=== PATIENT | male | born 1990 | race African-American/Black ===

== ENCOUNTER 2017-10-09 17:50 | Emergency (ER) | payer OTHER ==
[~2017-10-09] VITALS: Ht 172.7 cm; Wt 60.0 kg
[~2017-10-09 17:50] MED LIST: ADVIL
[2017-10-09] MEDS ORDERED: KETOROLAC 60MG/2ML VIAL IM ONE (19:15)
[2017-10-09 22:21] VITALS: BP 115/79
== END 2017-10-09 22:22 | disposition home or self-care (01) ==
LOC: ER 18:41
DX: S20.20XA Contusion of thorax, unspecified, initial encounter (principal); V43.52XA Car driver injured in collision with other type car in traffic accident, initial encounter; Y93.89 Activity, other specified; Y92.488 Other paved roadways as the place of occurrence of the external cause
CPT/HCPCS: 71101; 96372; 99284; J1885

== ENCOUNTER 2018-07-04 00:23 | Emergency (ER) | payer MEDICAID, OTHER ==
[~2018-07-04] VITALS: Ht 177.8 cm; Wt 60.2 kg
[2018-07-04] MEDS ORDERED: AZITHROMYCIN 500 MG TABLET PO ONE (02:00)
[2018-07-04] MEDS ORDERED: CEFTRIAXONE SODIUM 250 MG/VIAL IM ONE (02:00)
[2018-07-04] MEDS ORDERED: IBUPROFEN 600MG TABLET PO ONE (02:00)
[2018-07-04 02:58] VITALS: BP 115/67
[2018-07-04] MEDS ORDERED: LIDOCAINE HCL 1% 20ML VIAL (Pyxis) INJ INFIL ONE (03:00)
[2018-07-04] MEDS ORDERED: STERILE WATER FOR INJECTION 10ML VIAL ONE (03:03)
[2018-07-04 03:22] LABS: CLARITY URINE CLOUDY (CLEAR); COLOR URINE YELLOW (YELLOW); KETONES URINE TRACE (NEGATIVE); LEUKOCYTE ESTERASE URINE 3+ (NEGATIVE); NITRITE URINE NEGATIVE (NEGATIVE); OCCULT BLOOD URINE TRACE (NEGATIVE); PROTEIN URINE NEGATIVE (NEGATIVE); SPECIFIC GRAVITY URINE 1.022 (1.005-1.030)
== END 2018-07-04 04:35 | disposition home or self-care (01) ==
LOC: ER 00:23
DX: B00.9 Herpesviral infection, unspecified (principal); N39.0 Urinary tract infection, site not specified; Z88.0 Allergy status to penicillin
CPT/HCPCS: 81003; 87086; 96372; 99283; A4216; J0696; J3490; Z7610

== ENCOUNTER 2019-04-20 02:18 | Emergency (ER) | payer BC, MEDICAID ==
[~2019-04-20] VITALS: Ht 177.8 cm; Wt 59.0 kg
[2019-04-20] MEDS ORDERED: AZITHROMYCIN 500 MG TABLET PO ONE (04:00)
[2019-04-20] MEDS ORDERED: PENICILLIN G BENZATHINE 2,400,000 UNITS/4ML SYR IM ONE (04:00)
[2019-04-20 04:51] VITALS: BP 139/74
[2019-04-24 04:07] LABS: CHLAMYDIA TRACHOMATIS NAA Negative (Negative); NEISSERIA GONORRHOEAE NAA Negative (Negative)
== END 2019-04-20 04:54 | disposition home or self-care (01) ==
LOC: ER 02:18
DX: A53.9 Syphilis, unspecified (principal); Z88.8 Allergy status to other drugs, medicaments and biological substances
CPT/HCPCS: 86592; 86593; 86780; 87491; 87591; 96372; 99283; J0561; Z7610

== ENCOUNTER 2019-06-10 00:26 | Emergency (ER) | payer BC, MEDICAID ==
[~2019-06-10] VITALS: Ht 177.8 cm; Wt 58.3 kg
[2019-06-10 02:20] LABS: BASOPHILS % 0.1 % (0.0-2.0); EOSINOPHILS % 1.6 % (0.0-5.0); HEMATOCRIT. 40.7 % (42.0-52.0); HEMOGLOBIN. 13.8 g/dL (14.0-18.0); LYMPHOCYTES % 37.3 % (20.0-50.0); MEAN CORPUSCULAR HEMOGLOBIN 30.4 pg (28.0-32.0); MEAN CORPUSCULAR VOLUME 89.5 fL (80.0-94.0); MEAN PLATELET VOLUME 9.6 fl (7.4-10.4); MONOCYTES % 9.3 % (2.0-8.0); NEUTROPHILS % 51.7 % (40.0-76.0); PLATELET 213 x1000/uL (130-400); RED BLOOD CELL COUNT 4.55 mill/uL (4.7-6.1); RED CELL DISTRIBUTION WIDTH 13.6 % (11.6-14.6)
[2019-06-10 02:22] LABS: CHLORIDE 106 mEq/L (98-107)
[2019-06-10] MEDS ORDERED: FAMOTIDINE 20MG TABLET PO NR (03:00)
[2019-06-10] MEDS ORDERED: IBUPROFEN 600MG TABLET PO NR (03:00)
[2019-06-10 04:18] VITALS: BP 126/90
== END 2019-06-10 04:19 | disposition home or self-care (01) ==
LOC: ER 00:26
DX: R07.89 Other chest pain (principal); R51 Headache; Z88.3 Allergy status to other anti-infective agents
CPT/HCPCS: 36415; 71045; 80053; 83880; 84484; 85025; 93005; 99284

== ENCOUNTER 2019-11-21 22:31 | Emergency (ER) | payer BC, MEDICAID ==
[~2019-11-21] VITALS: Ht 175.3 cm; Wt 61.5 kg
[2019-11-22] MEDS ORDERED: SODIUM CHLORIDE 0.9% 1,000 ML IV ONE (00:31)
[2019-11-22 01:03] LABS: BASOPHILS % 1.3 % (0.0-2.0); EOSINOPHILS % 2.2 % (0.0-5.0); HEMATOCRIT. 44.7 % (42.0-52.0); HEMOGLOBIN. 15.3 g/dL (14.0-18.0); LYMPHOCYTES % 44.8 % (20.0-50.0); MEAN CORPUSCULAR HEMOGLOBIN 30.9 pg (28.0-32.0); MEAN CORPUSCULAR VOLUME 90.4 fL (80.0-94.0); MEAN PLATELET VOLUME 9.1 fl (7.4-10.4); MONOCYTES % 7.5 % (2.0-8.0); NEUTROPHILS % 44.2 % (40.0-76.0); PLATELET 233 x1000/uL (130-400); RED BLOOD CELL COUNT 4.95 mill/uL (4.7-6.1); RED CELL DISTRIBUTION WIDTH 12.5 % (11.6-14.6)
[2019-11-22 01:07] LABS: CHLORIDE 103 mEq/L (98-107)
[2019-11-22 02:43] VITALS: BP 133/85
== END 2019-11-22 03:23 | disposition home or self-care (01) ==
LOC: ER 22:31
DX: R42 Dizziness and giddiness (principal); R03.0 Elevated blood-pressure reading, without diagnosis of hypertension
CPT/HCPCS: 36415; 71045; 80053; 83880; 84484; 85025; 93005; 96360; 99285; J7030

== ENCOUNTER 2020-12-14 03:53 | Emergency (ER) | payer BC, MEDICAID ==
[~2020-12-14] VITALS: Ht 182.9 cm; Wt 68.0 kg
[2020-12-14] MEDS ORDERED: NAPR-1176 MT (05:38)
[2020-12-14] MEDS ORDERED: IBUPROFEN 600MG TABLET PO ONE (05:45)
[2020-12-14 06:00] VITALS: BP 122/78
== END 2020-12-14 06:08 | disposition home or self-care (01) ==
LOC: ER 03:53
DX: R07.89 Other chest pain (principal); R51.9 Headache, unspecified
CPT/HCPCS: 71045; 93005; 99283

== ENCOUNTER 2021-09-08 19:45 | Emergency (ER) | payer BC, MEDICAID ==
[~2021-09-08] VITALS: Ht 177.8 cm; Wt 68.0 kg
[~2021-09-08 19:45] MED LIST changes: +NAPR-1176 MT
[2021-09-08] MEDS ORDERED: ACETAMINOPHEN 325MG TABLET PO ONE (21:45)
[2021-09-08] MEDS ORDERED: DIPH28.34 TP (23:18)
[2021-09-08] MEDS ORDERED: HYDR453.3 TP (23:18)
[2021-09-08] MEDS ORDERED: [UNRECOGNIZED DRUG - CODE] MT (23:18)
[2021-09-08 23:30] VITALS: BP 128/88
== END 2021-09-08 23:30 | disposition home or self-care (01) ==
LOC: ER 20:27
DX: R51.9 Headache, unspecified (principal); R21 Rash and other nonspecific skin eruption; Z88.3 Allergy status to other anti-infective agents
CPT/HCPCS: 71045; 93005; 99285

== ENCOUNTER 2022-02-10 16:07 | Emergency (ER) | payer MEDICAID ==
[~2022-02-10] VITALS: Ht 177.8 cm; Wt 69.0 kg
[~2022-02-10 16:07] MED LIST changes: +DIPH28.34 TP; +HYDR453.3 TP; +[UNRECOGNIZED DRUG - CODE] MT
[2022-02-10] MEDS ORDERED: KETOROLAC 30MG/ML VIAL IV STA (17:37)
[2022-02-10] MEDS ORDERED: ASPIRIN 81MG TABLET PO ONE (17:45)
[2022-02-10] MEDS ORDERED: SODIUM CHLORIDE 0.9% 1,000 ML IV ONE (17:45)
[2022-02-10] MEDS ORDERED: NITROGLYCERIN 0.4MG TABLET SL SL PRN (17:45)
[2022-02-10 17:47] LABS: BASOPHILS % 0.5 % (0.0-2.0); EOSINOPHILS % 1.3 % (0.0-5.0); HEMATOCRIT. 40.2 % (42.0-52.0); HEMOGLOBIN. 13.8 g/dL (14.0-18.0); LYMPHOCYTES % 37.8 % (20.0-50.0); MEAN CORPUSCULAR HEMOGLOBIN 30.1 pg (28.0-32.0); MEAN CORPUSCULAR VOLUME 87.7 fL (80.0-94.0); MEAN PLATELET VOLUME 9.8 fl (7.4-10.4); MONOCYTES % 11.5 % (2.0-8.0); NEUTROPHILS % 48.9 % (40.0-76.0); PLATELET 200 x1000/uL (130-400); RED BLOOD CELL COUNT 4.59 mill/uL (4.7-6.1)
[2022-02-10 17:58] LABS: CHLORIDE 109 mEq/L (98-107)
[2022-02-10] MEDS ORDERED: IBUP-2028 MT (20:26)
[2022-02-10 21:12] VITALS: BP 134/91
== END 2022-02-10 21:15 | disposition home or self-care (01) ==
LOC: ER 16:07
DX: R07.89 Other chest pain (principal); Z88.3 Allergy status to other anti-infective agents
CPT/HCPCS: 36415; 71045; 80053; 83880; 84484; 85025; 93005; 96374; 99285; J1885; J7030; Z7610

== ENCOUNTER 2025-04-23 18:07 | Emergency (ER) | payer MEDICAID ==
[~2025-04-23] VITALS: Ht 175.3 cm; Wt 78.0 kg
[~2025-04-23 18:07] MED LIST changes: +IBUP-2028 MT
[2025-04-23 18:10] VITALS: O2SAT 97
[2025-04-23 18:13] VITALS: TEMP 37; O2SAT 99
[2025-04-23 19:20] VITALS: BP 138/86; PULSE 79; RESP 16
[2025-04-23] MEDS: KETOROLAC 15MG/ML VIAL IV ONE (19:20)
[2025-04-23] MEDS: METOCLOPRAMIDE HCL 10MG/2ML VIAL IV ONE (19:20)
[2025-04-23 20:33] LABS: CREATININE 1.1 mg/dL (0.6-1.3); TROPONIN I HIGH SENSITIVITY < 4 ng/L (3.0-53)
[2025-04-23 20:34] LABS: BASOPHILS % 0.5 % (0.0-2.0); EOSINOPHILS % 1.3 % (0.0-5.0); HEMATOCRIT. 39.9 % (42.0-52.0); HEMOGLOBIN. 13.6 g/dL (14.0-18.0); LYMPHOCYTES % 41.7 % (20.0-50.0); MEAN PLATELET VOLUME 9.4 fl (7.4-10.4); MONOCYTES % 10.2 % (2.0-8.0); NEUTROPHILS % 46.3 % (40.0-76.0); PLATELET 229 x1000/uL (130-400); RED BLOOD CELL COUNT 4.72 mill/uL (4.7-6.1); RED CELL DISTRIBUTION WIDTH 13.4 % (11.6-14.6); UREA NITROGEN BLOOD 7 mg/dL (9-23)
[2025-04-23 20:35] LABS: ASPARTATE AMINOTRANSFERASE 35 IU/L (<34)
[2025-04-23 20:36] LABS: BILIRUBIN DIRECT 0.1 mg/dL (<=3.0); BILIRUBIN TOTAL 0.5 mg/dL (0.1-1.0); PROTEIN TOTAL 7.6 g/dL (6.0-8.3)
== END 2025-04-23 18:46 | disposition left against medical advice (07) ==
LOC: ER 18:07
DX: R51.9 Headache, unspecified (principal); R07.89 Other chest pain; R06.02 Shortness of breath; Z79.1 Long term (current) use of non-steroidal anti-inflammatories (NSAID)
CPT/HCPCS: 99285; 96374; 70450; 71045; 96375; 80076; 80048; 83880; 85025; 84484; 36415; 93005; J1885; J2765